=== PATIENT | female | born 1935 | race Caucasian/White ===

== ENCOUNTER 2019-09-18 16:06 | Inpatient (IN) | payer MEDICARE, OTHER ==
[~2019-09-18] VITALS: Ht 152.4 cm; Wt 49.8 kg
[~2019-09-18 16:06] MED LIST: BUTALB-ACETAMI1 EACH PO; CRESTOR10 MG PO; DICYCLOMINE HCL10 MG PO; DILAUDID2 MG PO; GABAPENTIN300 MG PO; SERTRALINE HCL100 MG PO; VERAPAMIL ER240 MG PO
[2019-09-18] MEDS ORDERED: LISINOPRIL5 MG PO (16:23)
[2019-09-18] MEDS ORDERED: ELIQUIS5 MG PO (16:24)
--- NOTE | 2019-09-18 18:48 | EKG ---
[facility] [address] [place], [place] [address] Signed Atrial fibrillation with rapid ventricular response Anteroseptal infarct , age undetermined Abnormal ECG No previous ECGs available Confirmed by RADHA EDEN DO ([id number]) on 09/18/2019 6:47:59 PM Electronically Signed By: RADHA EDEN DO 09/18/19 1848 PATIENT NAME: MERLYN RABAGO ZURI Electrocardiogram DATE OF : 39 PHYSICIAN: RADHA EDEN DO REPORT #: [id number] REPORT IS CONFIDENTIAL AND NOT TO BE RELEASED WITHOUT AUTHORIZATION
--- NOTE | 2019-09-18 20:20 | NUR ---
RECEIVED REPORT FROM LARRY RN IN ED. PT BEING ADMITTED FOR PNEUMONIA, A/O, SBA, SL UNSTEADY ON FEET DURING TRANSFER. SEEN IN THE CLINIC, TESTED FOR INFLUENZA, NEG; AND WAS RETESTED IN ED DURING THIS VISIT, NEG. FAMIY WITH PT IN ED.
--- NOTE | 2019-09-18 21:00 | NUR ---
WIPED PT DOWN DUE TO A BM. TWO WARM BLANKETS GIVEN. ICE WATER WELL. BEDSIDE TABLE AND CALL LIGHT IN REACH. BED WEIGHT AND VITALS DONE AND CHARTED.
--- NOTE | 2019-09-18 21:06 | NUR ---
PT ADMITTED TO ROOM 122 FROM ED, ACCOMPAINED BY WHO HAS DEMENTIA, DAUGHTER SARITHA. SBA TRANSFERED FROM STRETCHER TO BED, INCONT STOOL, BUT NORMALLY CONINENT. EMBARRASSED THAT THIS HAPPENED. SOFT SPOKEN, A/O. STAYING ON COUCH. PT DENIED FOOD WHEN OFFERED, DID DRINK SOME WATER. CALL LIGHT EDUCATION, WILL USE BED ALARM UNTIL ABLE TO ASSESS HER SAFETY.
--- NOTE | 2019-09-18 22:10 | NUR ---
PT SITTING UP IN BED AWAKE, ALERT AND ORIENTED. ASLEEP AT BEDSIDE. IV INFUSING WNL. PT DENIES PAIN OR OTHER CONCERNS AT THIS TIME. ATE SOME JELLO, MISHEL WELL. CALL LIGHT WITHIN REACH, BED ALARM ON.
[2019-09-18] MEDS ORDERED: REMERON15 MG PO (23:22)
[2019-09-18] MEDS ORDERED: K-TAB ER20 MEQ PO (23:24)
[2019-09-18] MEDS ORDERED: KLOR-CON 1010 MEQ PO (23:30)
--- NOTE | 2019-09-19 | NUR ---
HELPED PT BACK TO BED FROM THE BATHROOM. FRESH WATER GIVEN. NEW GOWN PUT ON. BEDSIDE TABLE AND CALL LIGHT IN REACH.
--- NOTE | 2019-09-19 01:32 | NUR ---
LYING IN BED. STATES HER EYES ARE DRY, BUT DOES NOT NEED ANYTHING FOR THEM AT THIS TIME. ALSO STATES MOUTH IS DRY. WATER PROVIDED. STATES SHE DOES NOT LIKE TAKING POTASSIUM BECAUSE IT GIVES HER DIARRHEA, WHICH IS WHY SHE HAS NOT BEEN TAKING IT AT HOME. EDUCATED ON IMPORTANCE OF TAKING MEDICATION TO PREVENT IT FROM BEING LOW AGAIN. VERBALIZES UNDERSTANDING. SPOUSE SLEEPING AT BEDSIDE. CALL LIGHT IN REACH. SIDE RAILS UP X2.
--- NOTE | 2019-09-19 02:05 | NUR ---
0200 VS AND I&OS COMPLETE. FRESH WATER GIVEN, NOTHING FURTHER NEEDED AT THIS TIME.
--- NOTE | 2019-09-19 02:46 | NUR ---
PT USED CALL LIGHT TO REQUEST ASSISTANCE INTO RESTROOM. SHE RESULTED IN 100CCS OF URINE AND A SM LIQ BM. I GAVE PT A WARM BLANKET AND FRESH ICE WATER, NOTHING FURTHER WAS NEEDED. BED RAILS UP X2, CALL LIGHT WITHIN REACH OF PT.
--- NOTE | 2019-09-19 04:25 | NUR ---
DIFFICULTY SLEEPING. STATES SHE IS IN PAIN AND HER COUGH IS MAKING HER UNABLE TO REST. PRN MEDICATIONS GIVEN PRESCRIBED TO ASSIST PATIENT TO REST.
--- NOTE | 2019-09-19 05:46 | NUR ---
REMAINS AWAKE AT THIS TIME. STILL UNABLE TO SLEEP, HOWEVER DENIES NEEDS. CALL LIGHT IN REACH. IV PUMP CLEARED.
--- NOTE | 2019-09-19 06:32 | NUR ---
DOES NOT SLEEP DURING THE NIGHT. VISITS WITH STAFF, TALKING OF LIFE EXPERIENCES. CONTINUES ON ROOM AIR WITHOUT SIGNS AND SYMPTOMS OF SHORTNESS OF BREATH. UNABLE TO OBTAIN SPUTUM SPECIMEN DUE TO DRY COUGH AND NO SPUTUM. IV FLUIDS CONTINUE INFUSING. PRN TYLENOL GIVEN FOR CHRONIC PAIN IN SHOULDERS AND UPPER BACK, COUGH MEDICATION GIVEN TO HELP RELIEVE COUGH SO PATIENT MAY GET SLEEP. SPOUSE REMAINS IN ROOM THROUGHOUT THE NIGHT WITH PATIENT. CALL LIGHT IN REACH.
--- NOTE | 2019-09-19 07:00 | NUR ---
BEDSIDE HANDOFF REPORT RECEIVED FROM DOORKEEPER RN. PT SLEEPING, LEFT UNDISTURBED.
--- NOTE | 2019-09-19 09:06 | NUR ---
PT RESTING IN BED. PT ON ROOM AIR, LUNG SOUNDS CLEAR WITH DIMINISHED LEFT LOWER LOBE, FREQUENT DRY COUGH. PT DENIES PAIN. IV FLUIDS INFUSING LR AT 755 ML/HR. BOWEL TONES ACTIVE, PT WITH DECREASED APPETITE. CMS INTACT, WITHOUT EDEMA. DISCUSSED PLAN OF CARE FOR THE DAY. MORNING MEDICATIONS GIVEN. PT DENIES OTHER NEEDS AT THIS TIME.
--- NOTE | 2019-09-19 13:42 | NUR ---
ENTERED PTS' RM-DARKENED WITH TV ON, CURT AT BS. HAD GOOD VISIT WITH PT AND . GAVE PT A G.POST AND COLOR BK. PT REQUESTED PRAYER, WILL FOLLOW NEEDED
[2019-09-19] MEDS ORDERED: BUTALB-ACETAMI1 EACH PO (14:01)
[2019-09-19] MEDS ORDERED: BISOPROLOL-HCT1 EAC1 PO (14:14)
--- NOTE | 2019-09-19 15:30 | NUR ---
In and spoke with pt. States she and spouse have been for 62 years. Very tired. Daughter has moved 5th wheel onto property and helps parents. Daughter is Roxann Mena. Pt denies use of DME. Has some difficulty with conversation as it is difficult to follow conversation. Pt is very tired and does not feel well. Spouse at her side, holding her hand. Pt wants to discharge to home when feeling better.
--- NOTE | 2019-09-19 16:30 | NUR ---
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 SHE STATES SHE UNDERSTANDS WHAT PNUEMONIA IS AND KNOWS THAT IF IT IS BACTERIAL IT IS TREATED WITH ANTIBX. PT DOES SHOW SOME SIMPLE SIGNS OF SLIGHT CONFUSION UNABLE TO ORIENT TO PLACE. PT DOES KNOW MOST OF HER MEDS, BUT NOT ALL AT THIS TIME. PT STATES UNDERSTANDING WHEN SHE IS TOLD ABOUT THEM. 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 PT STATES UNDERSTANDING AT THIS TIME.
--- NOTE | 2019-09-19 17:20 | NUR ---
PT WANDERING IN ROUSE AND ASKING ABOUT SALINE LCOKED, ASSISTED BACK TO ROOM, PT USED THE BATHROOM AND THEN ASSISTED TO BED, BED ALARM ON. PT ORIENTED X3. VSS. PT COMPLAINT OF NAUSEA, GIVEN 4 MG IV ZOFRAN PER ORDER. PT DENIES OTHER NEEDS AT THIS TIME.
--- NOTE | 2019-09-19 18:07 | NUR ---
PT ON ROOM AIR, LUNG SOUNDS CLEAR, CONTINUES TO HAVE DRY COUGH, SPUTUM SAMPLE NEEDED. PT SBA TO AMBULATE, DID NOT CALL APPROPRIATELY THIS EVENING, BED ALARM IN PLACE. IV NOW SALINE LOCKED. PT COMPLAINT OF NAUSEA, GIVEN IV ZOFRAN X1, TOLERATING DIET, SEVERAL SMALL BM TODAY. PT FORGETFUL, ORIENTED X3. VOIDING QS.
--- NOTE | 2019-09-19 19:25 | NUR ---
AWAKE, WATCHING TV, NO C/O PAIN, ON ROOM AIR, NO C/O PAIN OR N/V, FLUIDS AND CALL LIGHT AT HANDS REACH. AT BEDSIDE
--- NOTE | 2019-09-19 21:47 | NUR ---
WATCHING TV, NO C/O APIN. CALL LIGHT AT BEDSIDE, BED ALARM ON, AT BEDSIDE
--- NOTE | 2019-09-20 01:19 | NUR ---
resting, eyes closed, resp even, unlabored. call light at bedside, rooming in
--- NOTE | 2019-09-20 03:29 | NUR ---
PT OUT OF ROOM, CONCERNED ABOUT WHO IS ROOMING IN, WARM PBLANKET GIVEN FOR , PT DFENIES C/O APIN OR SOB, UP TO BR W/O HELP, CALL LIGHT AT HADNS REACH, NOT USING IT. TEACHING REINFORCED, STATED UNDERSTANDING
--- NOTE | 2019-09-20 05:34 | NUR ---
HAS SLEPT MOST OF THIS SHIFT, MEDICATED WT TYLENOL X1 PER GENERALIZED PAINS WITH GOOD PAIN RESULTS. SL PATENT. AMBULATED IN ROOM, NO C/O N/V. TOLERATING DIET AND FLUIDS WELL, CALL LIGHT AND FLUIDS AT BEDSIDE. CONTINUES TO HAVE OCASSIONAL, DRY NON PRODUCTIVE COUGH. PT AWARE OF SPUTUM SAMPLE NEEDED. PT PTS WHO HAS DEMENTIA ROOMING IN.
--- NOTE | 2019-09-20 07:15 | NUR ---
HANDOFF REPORT RECEIVED FROM DIRECTOR OF CONSTRUCTION RN. PT SLEEPING LEFT UNDISTURBED.
--- NOTE | 2019-09-20 08:00 | NUR ---
PT RESTING IN BED. PT ON ROOM AIR, LUNG SOUNDS CLEAR. PT A&O X3. IV SALINE LOCKED. CMS INTACT, WITHOUT EDEMA. PT DENIES NAUSEA, BOWEL TONES ACTIVE. MORNING MEDICATIONS ADMINISTERED PER ORDER. PT DENIES OTHER NEEDS AT THIS TIME.
--- NOTE | 2019-09-20 08:32 | NUR ---
PATIENT RESTING IN BED, EYES CLOSED, CALL LIGHT IN REACH.
[2019-09-20] MEDS ORDERED: POTASSIUM CHLO10 MEQ PO (08:46)
--- NOTE | 2019-09-20 08:46 | NUR ---
MED REC COMPLETE
[2019-09-20] MEDS ORDERED: DOXYCYCLINE HY100 MG PO (09:58)
[2019-09-20] MEDS ORDERED: POTASSIUM CHLO20 ME1 PO (09:59)
--- NOTE | 2019-09-20 10:01 | NUR ---
PATIENT AMBULATED TO BATHROOM AND BACK TO BED. PATIENT STATES SHE HAS URINATED EARLIER TODAY ALREADY. PATIENT BED ALARM ON, CALL LIGHT IN REACH. DOCTOR IN ROOM TO ASSESS PATIENT AT THIS TIME.
--- NOTE | 2019-09-20 11:15 | NUR ---
SPOKE WITH PATIENT, AND DAUGHTER SARITHA MARTINEZ IN ROOM. PATIENTS CURT IS QUITE CONFUSED AND DOESN'T PARTICIPATE IN THE CONVERSATION PRODUCTIVELY. DAUGHTER STATES SHE IS LIVING IN FIFTH WHEEL NEXT TO PATIENTS HOUSE. SHE STATES PATIENT HAS BEEN CARING MOSTLY FOR HER . PATIENT HAS SOME PROBLEMS WITH MEMORY AND HAS BEEN HAVING MORE DIFFICULTY WITH DOING THIS. SHE STATES THEY ARE GETTING CLOSE TO NEEDING HELP. DISCUSSED WITH HER THAT I CAN HAVE OUR CHW LAURA CONTACT HER MONDAY AND HELP HER WITH RESOURCES. SHE IS GREATFUL FOR THIS HELP. SHE ASKS FOR HER CELL PHONE TO BE GIVEN [phone]. PATIENT IS ORIENTED TO PERSON, PLACE. SHE IS WANTING TO GO HOME. STATES SHE HASN'T SLEPT WELL IN THE HOSPITAL. THEY STATE THE DOCTOR IS LETTING HER GO TODAY. DAUGHTER IS GOING TO STAY FOR ALL DISCHARGE INSTRUCTIONS AND STATES SHE WILL BE WITH THEM AFTER DISCHARGE. QUESITONS ANSWERED. REFERRAL FOR LAURA VALENZUELA DONE AND SCANNED TO HER EMAIL.
--- NOTE | 2019-09-20 12:18 | NUR ---
NE PEREZ WAS GOING OVER [place] WITH PTS' DAUGHTER. GAVE A BLESSING AND WISHED HER A PO GALLARDO. WILL FOLLOW NEEDED
== END 2019-09-20 12:00 | disposition home or self-care (01) | DRG 871 ==
LOC: ED 16:06 → MS 20:09
PROVIDERS: ADMIT Student in an Organized Health Care Education/Training Program
DX: A40.3 Sepsis due to Streptococcus pneumoniae (principal); J13 Pneumonia due to Streptococcus pneumoniae; E87.6 Hypokalemia; I10 Essential (primary) hypertension; I48.91 Unspecified atrial fibrillation; G47.00 Insomnia, unspecified; F39 Unspecified mood [affective] disorder; Z79.899 Other long term (current) drug therapy; Z79.01 Long term (current) use of anticoagulants; Z88.5 Allergy status to narcotic agent; Z88.8 Allergy status to other drugs, medicaments and biological substances
CPT/HCPCS: 36415; 71045; 80048; 80053; 81001; 83605; 83735; 83880; 84484; 85025; 87502; 93005; 93010; 94667; 96361; 96365; 97116; 97162; 97165; 99285-25; J0696; J2405; J3475; J7030; J7121

== ENCOUNTER 2019-09-24 10:50 | Emergency (ER) | payer MEDICARE, OTHER ==
[~2019-09-24] VITALS: Ht 152.4 cm; Wt 49.8 kg
[~2019-09-24 10:50] MED LIST changes: +BISOPROLOL-HCT1 EAC1 PO; +DOXYCYCLINE HY100 MG PO; +ELIQUIS5 MG PO; +K-TAB ER20 MEQ PO; +KLOR-CON 1010 MEQ PO; +LISINOPRIL5 MG PO; +POTASSIUM CHLO10 MEQ PO; +POTASSIUM CHLO20 ME1 PO; +REMERON15 MG PO
--- OUTSIDE RECORDS SUMMARY | 2019-09-24 10:52 | XMS ---
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 Marcelo VISIT COUNT (12 MO.) 2 [facility] TOTAL 2 NOTE: Visits indicate total known visits. ED/UCC VISIT TRACKING (12 MO.) 09/24/2019 10:51 [facility] TYPE: Emergency COMPLAINT: - PNEUMONIA, NOT FEELING BETTER 09/18/2019 16:07 [facility] [place] TYPE: Emergency COMPLAINT: - COUGH/ FLU SYMPTOMS INPATIENT VISIT TRACKING (12 MO.) 09/18/2019 20:09 [facility] [place] TYPE: Medical Surgical COMPLAINT: - PNEUMONIA DIAGNOSES: - Sepsis due to Streptococcus pneumoniae Sepsis du - jail (current) use of anticoagulants - Unspecified atrial fibrillation - Allergy status to narcotic agent status - Allergy status to narcotic agent status - Unspecified atrial fibrillation - Essential (primary) hypertension - Pneumonia due to Streptococcus pneumoniae - Hypokalemia - Pneumonia due to Streptococcus pneumoniae - Insomnia, unspecified - Sepsis, unspecified organism Sepsis, u - Unspecified mood [affective] disorder - Hypokalemia - Essential (primary) hypertension - Allergy status to oth drug/meds/biol subst status - Insomnia, unspecified - Other intermodal customer service (current) drug therapy - Sepsis due to Streptococcus pneumoniae Sepsis du - Unspecified mood [affective] disorder - Allergy status to oth drug/meds/biol subst status - computer terminal operator (current) use of anticoagulants - Other intermodal customer service (current) drug therapy [email or web address]
--- NOTE | 2019-09-24 23:41 | EKG ---
[facility] [address] [place] [address] Signed Atrial fibrillation with slow ventricular response Anteroseptal infarct (cited on or before 18-SEP-2019) Abnormal ECG When compared with ECG of 18-SEP-2019 17:11, Vent. rate has decreased BY [address] no longer depressed in Anterior leads Nonspecific T wave abnormality, improved in Inferior leads Confirmed by JULIA LYN MD ([id number]) on 09/24/2019 11:41:49 PM Electronically Signed By: JULIA LYN MD 09/24/19 2341 PATIENT NAME: MERLYN RABAGO Electrocardiogram DATE OF : 39 PHYSICIAN: JULIA LYN MD REPORT #: [id number] REPORT IS CONFIDENTIAL AND NOT TO BE RELEASED WITHOUT AUTHORIZATION
== END 2019-09-24 14:27 | disposition home or self-care (01) ==
LOC: ED 10:50
DX: J18.9 Pneumonia, unspecified organism (principal); I10 Essential (primary) hypertension; F41.9 Anxiety disorder, unspecified; I48.91 Unspecified atrial fibrillation; Z88.8 Allergy status to other drugs, medicaments and biological substances; Z88.5 Allergy status to narcotic agent; Z88.6 Allergy status to analgesic agent; Z79.899 Other long term (current) drug therapy
CPT/HCPCS: 71045; 80053; 81001; 83605; 83880; 84484; 85025; 93005; 93010; 96360; 96361; 99285-25; J7040

== ENCOUNTER 2019-10-21 09:27 | Emergency (ER) | payer MEDICARE, OTHER ==
[~2019-10-21] VITALS: Ht 152.4 cm; Wt 49.8 kg
--- OUTSIDE RECORDS SUMMARY | 2019-10-21 09:30 | XMS ---
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 Marcelo VISIT COUNT (12 MO.) 3 [facility] TOTAL 3 NOTE: Visits indicate total known visits. ED/UCC VISIT TRACKING (12 MO.) 10/21/2019 09:28 [facility] TYPE: Emergency COMPLAINT: - FALL, PAIN 09/24/2019 10:51 [facility] TYPE: Emergency COMPLAINT: - PNEUMONIA, NOT FEELING BETTER DIAGNOSES: - Weakness - Allergy status to analgesic agent status - Pneumonia, unspecified organism - Other manager intermediate (current) drug therapy - Essential (primary) hypertension - Allergy status to oth drug/meds/biol subst status - Anxiety disorder, unspecified - Unspecified atrial fibrillation - Allergy status to narcotic agent status 09/18/2019 16:07 [facility] TYPE: Emergency COMPLAINT: - COUGH/ FLU SYMPTOMS INPATIENT VISIT TRACKING (12 MO.) 09/18/2019 20:[address] [facility] [place] TYPE: Medical Surgical COMPLAINT: - PNEUMONIA DIAGNOSES: - Sepsis due to Streptococcus pneumoniae Sepsis du - terminal gauger supervisor (current) use of anticoagulants - Unspecified atrial [...] subst status - Insomnia, unspecified - Other group home (current) drug therapy - Sepsis due to Streptococcus pneumoniae Sepsis du - Unspecified mood [affective] disorder - Allergy status to oth drug/meds/biol subst status - [facility] (current) use of anticoagulants - Other group home (current) drug therapy [email or web address]
--- NOTE | 2019-10-21 14:12 | EKG ---
[facility] [address] [place], [place] [address] Signed Atrial fibrillation with slow ventricular response Anteroseptal infarct (cited on or before 18-SEP-2019) Abnormal ECG When compared with ECG of 24-SEP-2019 11:56, No significant change was found Confirmed by RADHA EDEN DO ([id number]) on 10/21/2019 2:11:46 PM Electronically Signed By: RADHA EDEN DO 10/21/19 1412 PATIENT NAME: MERLYN RABAGO ZURI Electrocardiogram DATE OF : 39 PHYSICIAN: RADHA EDEN DO REPORT #: [id number] REPORT IS CONFIDENTIAL AND NOT TO BE RELEASED WITHOUT AUTHORIZATION
== END 2019-10-21 13:22 | disposition home or self-care (01) ==
LOC: ED 09:27
DX: S32.049A Unspecified fracture of fourth lumbar vertebra, initial encounter for closed fracture (principal); W18.30XA Fall on same level, unspecified, initial encounter; I10 Essential (primary) hypertension; F41.9 Anxiety disorder, unspecified; I48.91 Unspecified atrial fibrillation; Z88.6 Allergy status to analgesic agent; Z88.8 Allergy status to other drugs, medicaments and biological substances; Z88.5 Allergy status to narcotic agent; Z79.899 Other long term (current) drug therapy
CPT/HCPCS: 70450; 72131; 80053; 81001; 85025; 93005; 93010; 99284-25